=== PATIENT | male | born 1945 | race Caucasian/White ===

== ENCOUNTER 2023-01-19 13:17 | Emergency (ER) | payer MEDICARE, OTHER ==
[~2023-01-19] VITALS: Ht 162.6 cm; Wt 54.4 kg
[~2023-01-19 13:17] MED LIST: ASPI-1420 PO
--- NOTE | 2023-01-19 13:25 | NUR ---
RECEIVED PT TRANSF[facility] S/P GROUND LEVE FALL NO PAIN NO DIFFORMITY C/O HEMATOMAY IN HEAD
--- NOTE | 2023-01-19 13:35 | NUR ---
Luna phipps in [facility] - 01/19/23 at [address]INA SE[address] BY DR. CLEVELAND
--- NOTE | 2023-01-19 13:40 | NUR ---
SEEN BY DR. CLEVELAND
--- NOTE | 2023-01-19 14:10 | NUR ---
TO CT SCAN VIA PABLO
[2023-01-19] MEDS ORDERED: DIVA-78 PO (14:29)
[2023-01-19] MEDS ORDERED: SULF1TAB48 PO (14:29)
[2023-01-19] MEDS ORDERED: CARV3.122 PO (14:29)
[2023-01-19] MEDS ORDERED: MULT-213 PO (14:29)
[2023-01-19] MEDS ORDERED: TAMS-12 PO (14:29)
[2023-01-19] MEDS ORDERED: SACU1TAB7 PO (14:29)
[2023-01-19] MEDS ORDERED: SITA1TAB6 PO (14:29)
[2023-01-19] MEDS ORDERED: DOCU-141 PO (14:29)
[2023-01-19] MEDS ORDERED: ATOR20TA PO (14:29)
[2023-01-19] MEDS ORDERED: QUET100T PO (14:29)
--- NOTE | 2023-01-19 15:41 | NUR ---
SET UP TRANSPORT WITH NADIR FREEMAN 40 MIN.
--- NOTE | 2023-01-19 16:31 | NUR ---
CALLED [facility] SPOKE WITH [facility]
--- NOTE | 2023-01-19 17:00 | NUR ---
Patient discharged to home in stable condition. Written and verbal after care instructions given. Patient verbalizes understanding of instruction.TRANSFER BACK TO [facility]
[2023-01-19 17:09] VITALS: BP 147/96
== END 2023-01-19 17:10 | disposition home or self-care (01) ==
LOC: ER 13:20
DX: S09.90XA Unspecified injury of head, initial encounter (principal); I11.0 Hypertensive heart disease with heart failure; I50.9 Heart failure, unspecified; E11.9 Type 2 diabetes mellitus without complications; F31.9 Bipolar disorder, unspecified; Z79.899 Other long term (current) drug therapy; W06.XXXA Fall from bed, initial encounter; Y93.89 Activity, other specified; Y92.89 Other specified places as the place of occurrence of the external cause; Y99.8 Other external cause status
CPT/HCPCS: 70450-TC

== ENCOUNTER 2023-01-22 10:53 | Inpatient (IN) | payer MEDICARE, OTHER ==
[~2023-01-22] VITALS: Ht 162.6 cm; Wt 61.7 kg
[~2023-01-22 10:53] MED LIST changes: +ATOR20TA PO; +CARV3.122 PO; +DIVA-78 PO; +DOCU-141 PO; +MULT-213 PO; +QUET100T PO; +SACU1TAB7 PO; +SITA1TAB6 PO; +SULF1TAB48 PO; +TAMS-12 PO
[2023-01-22 12:17] LABS: CALCIUM, SERUM 11.9 mg/dL (8.5-10.1); CARBON DIOXIDE 24 mmol/L (21-32); CHLORIDE 105 mmol/L (98-107); CREATININE 1.8 mg/dL (0.6-1.3); GLUCOSE 119 mg/dL (74-106); POTASSIUM 5.2 mmol/L (3.5-5.1); SODIUM SERUM 137 mmol/L (136-145); UREA NITROGEN, BLOOD 32 mg/dL (7-18)
[2023-01-22 12:24] LABS: ALANINE AMINOTRANSFERASE 18 U/L (12-78); ALBUMIN 3.5 g/dL (3.4-5.0); ALKALINE PHOSPHATASE 73 U/L (46-116); ASPARTATE AMINOTRANSFERASE 12 U/L (15-37); BILIRUBIN,DIRECT 0.2 mg/dL (0.0-0.2); BILIRUBIN,TOTAL 0.4 mg/dL (0.2-1.0); TOTAL PROTEIN, SERUM 8.2 g/dL (6.4-8.2)
[2023-01-22 12:57] LABS: BASOPHILS # (AUTO) 0.1 K/uL (0.0-0.2); BASOPHILS % (AUTO) 0.8 % (0.0-2.0); EOSINOPHILS % (AUTO) 0.8 % (0.0-6.0); HEMATOCRIT 42 % (39-51); HEMOGLOBIN 13.8 g/dL (13.5-17.5); LYMPHOCYTES # (AUTO) 2.5 K/uL (0.8-4.8); LYMPHOCYTES % (AUTO) 36.1 % (20.0-44.0); MEAN CORPUSCULAR HGB CONC 33 g/dl (31.0-36.0); MEAN CORPUSCULAR VOLUME 99 fL (80-96); MONOCYTES # (AUTO) 0.6 K/uL (0.1-1.30); MONOCYTES % (AUTO) 8.3 % (2.0-12.0); NEUTROPHILS # (AUTO) 3.7 K/uL (1.8-8.9); PLATELET COUNT (AUTO) 138 K/uL (150-450); RED BLOOD CELL COUNT(AUTO) 4.19 MIL/uL (4.5-6.0); WHITE BLOOD COUNT (AUTO) 6.8 K/uL (4.3-11.0)
[2023-01-22] MEDS ORDERED: IV NS 0.9% 1,000 ML BAG IV ONE (13:00)
[2023-01-22 14:45] LABS: BILIRUBIN,URINE NEGATIVE (NEGATIVE); COLOR,URINE YELLOW (YELLOW); LEUKOCYTE ESTERASE ,URINE NEGATIVE (NEGATIVE); NITRITE, URINE NEGATIVE (NEGATIVE); PROTEIN,URINE NEGATIVE (NEGATIVE); UGLUCOSE NEGATIVE (NEGATIVE); UROBILINOGEN,URINE 0.2 EU/dL (0.2)
[2023-01-22 15:59] LABS: BACTERIA,URINE None seen /HPF (None Seen); SQUAMOUS EPITHELIAL CELL,UR 0-2 /HPF (None Seen); WBC,URINE 0-2 /HPF (0-3)
[2023-01-22] MEDS ORDERED: DEXTROSE 50%-WATER 50 ML DISP.SYRIN IV PRN (16:30)
[2023-01-22] MEDS ORDERED: ACETAMINOPHEN 325 MG TABLET PO PRN (16:30)
[2023-01-22] MEDS ORDERED: ONDANSETRON HCL/PF 4 MG/2 ML VIAL IVP PRN (16:30)
[2023-01-22] MEDS: IV NS 0.9% 1,000 ML IV PRN (16:59)
[2023-01-22] MEDS: BLOOD SUGAR DIAGNOSTIC 1 EACH STRIP IN SCH ×2 (17:25→21:41)
[2023-01-22] MEDS: CARVEDILOL 3.125 MG TABLET PO SCH (17:26)
[2023-01-22] MEDS: DOCUSATE SODIUM 100 MG CAPSULE PO SCH (17:26)
[2023-01-22 18:02] VITALS: BP 134/68
[2023-01-22 20:00] VITALS: BP 131/87
[2023-01-22] MEDS: QUETIAPINE FUMARATE 100 MG TABLET PO SCH (21:41)
[2023-01-22] MEDS: ATORVASTATIN 10 MG TABLET PO SCH (21:42)
[2023-01-22] MEDS: DIVALPROEX SODIUM 500 MG TABLET.DR PO SCH (21:44)
[2023-01-22] MEDS: ENOXAPARIN SODIUM 30 MG/0.3 ML DISP.SYRIN SQ SCH (21:46)
[2023-01-23] MEDS: BLOOD SUGAR DIAGNOSTIC 1 EACH STRIP IN SCH ×4 (06:30→22:02)
[2023-01-23 06:55] LABS: BASOPHILS % (AUTO) 0.6 % (0.0-2.0); EOSINOPHILS % (AUTO) 2.6 % (0.0-6.0); HEMATOCRIT 36 % (39-51); HEMOGLOBIN 11.7 g/dL (13.5-17.5); LYMPHOCYTES # (AUTO) 2.1 K/uL (0.8-4.8); LYMPHOCYTES % (AUTO) 40.9 % (20.0-44.0); MEAN CORPUSCULAR HGB CONC 33 g/dl (31.0-36.0); MEAN CORPUSCULAR VOLUME 100 fL (80-96); MONOCYTES # (AUTO) 0.3 K/uL (0.1-1.30); MONOCYTES % (AUTO) 6.5 % (2.0-12.0); NEUTROPHILS # (AUTO) 2.6 K/uL (1.8-8.9); NEUTROPHILS % (AUTO) 49.4 % (43.0-81.0); PLATELET COUNT (AUTO) 116 K/uL (150-450); RED BLOOD CELL COUNT(AUTO) 3.54 MIL/uL (4.5-6.0); WHITE BLOOD COUNT (AUTO) 5.2 K/uL (4.3-11.0)
[2023-01-23 07:00] LABS: CALCIUM, SERUM 10.4 mg/dL (8.5-10.1); CREATININE 1.2 mg/dL (0.6-1.3); MAGNESIUM 1.5 mg/dL (1.8-2.4); PHOSPHORUS 2.9 mg/dL (2.5-4.9); POTASSIUM 5.3 mmol/L (3.5-5.1)
[2023-01-23] MEDS: IV NS 0.9% 1,000 ML IV PRN (07:27)
[2023-01-23 08:00] VITALS: BP 123/72
[2023-01-23] MEDS: DIVALPROEX SODIUM 500 MG TABLET.DR PO SCH ×2 (09:04→21:35)
[2023-01-23] MEDS: ASPIRIN EC 81 MG TABLET.DR PO SCH (09:04)
[2023-01-23] MEDS: DOCUSATE SODIUM 100 MG CAPSULE PO SCH ×2 (09:05→19:03)
[2023-01-23] MEDS: CARVEDILOL 3.125 MG TABLET PO SCH ×2 (09:05→19:02)
[2023-01-23] MEDS: TAMSULOSIN 0.4 MG CAP.SR.24H PO SCH (09:05)
[2023-01-23] MEDS ORDERED: MAGNESIUM OXIDE 400 MG TABLET PO ONE (10:00)
[2023-01-23] MEDS: MULTIVIT W/MINERALS 1 TAB TABLET PO SCH (12:08)
[2023-01-23 16:00] VITALS: BP 113/75
[2023-01-23 20:44] VITALS: BP 121/73
[2023-01-23] MEDS: QUETIAPINE FUMARATE 100 MG TABLET PO SCH (21:35)
[2023-01-23] MEDS: ATORVASTATIN 10 MG TABLET PO SCH (21:35)
[2023-01-23] MEDS: ENOXAPARIN SODIUM 30 MG/0.3 ML DISP.SYRIN SQ SCH (21:36)
[2023-01-23] MEDS: INSULIN REGULAR, HUMAN 100 UNIT/ML 3 ML VIAL SQ PRN (22:02)
[2023-01-24] MEDS: IV NS 0.9% 1,000 ML IV PRN ×2 (03:13→15:27)
[2023-01-24] MEDS: INSULIN REGULAR, HUMAN 100 UNIT/ML 3 ML VIAL SQ PRN ×4 (06:33→22:59)
[2023-01-24] MEDS: BLOOD SUGAR DIAGNOSTIC 1 EACH STRIP IN SCH ×4 (06:33→21:42)
[2023-01-24 08:38] LABS: CALCIUM, SERUM 10.7 mg/dL (8.5-10.1); CREATININE 1.1 mg/dL (0.6-1.3); POTASSIUM 4.9 mmol/L (3.5-5.1)
[2023-01-24 08:44] LABS: ALBUMIN 2.5 g/dL (3.4-5.0); BILIRUBIN,TOTAL 0.3 mg/dL (0.2-1.0); TOTAL PROTEIN, SERUM 6.2 g/dL (6.4-8.2)
[2023-01-24 09:00] VITALS: BP 141/89
[2023-01-24] MEDS: ASPIRIN EC 81 MG TABLET.DR PO SCH (09:16)
[2023-01-24] MEDS: DOCUSATE SODIUM 100 MG CAPSULE PO SCH ×2 (09:17→17:54)
[2023-01-24] MEDS: MULTIVIT W/MINERALS 1 TAB TABLET PO SCH (09:17)
[2023-01-24] MEDS: TAMSULOSIN 0.4 MG CAP.SR.24H PO SCH (09:17)
[2023-01-24] MEDS: CARVEDILOL 3.125 MG TABLET PO SCH ×2 (09:17→17:54)
[2023-01-24] MEDS: DIVALPROEX SODIUM 500 MG TABLET.DR PO SCH ×2 (09:17→21:06)
[2023-01-24] MEDS ORDERED: MAGNESIUM OXIDE 400 MG TABLET PO ONE (10:00)
[2023-01-24 18:43] VITALS: BP 89/69
[2023-01-24 20:00] VITALS: BP 115/71
[2023-01-24] MEDS: QUETIAPINE FUMARATE 100 MG TABLET PO SCH (21:06)
[2023-01-24] MEDS: ATORVASTATIN 10 MG TABLET PO SCH (21:06)
[2023-01-24] MEDS: ENOXAPARIN SODIUM 30 MG/0.3 ML DISP.SYRIN SQ SCH (21:08)
[2023-01-25] MEDS: IV NS 0.9% 1,000 ML IV PRN (03:37)
[2023-01-25] MEDS: BLOOD SUGAR DIAGNOSTIC 1 EACH STRIP IN SCH ×3 (06:38→17:00)
[2023-01-25] MEDS: ASPIRIN EC 81 MG TABLET.DR PO SCH (08:28)
[2023-01-25] MEDS: CARVEDILOL 3.125 MG TABLET PO SCH (08:29)
[2023-01-25] MEDS: DOCUSATE SODIUM 100 MG CAPSULE PO SCH (08:29)
[2023-01-25] MEDS: TAMSULOSIN 0.4 MG CAP.SR.24H PO SCH (08:29)
[2023-01-25] MEDS: MULTIVIT W/MINERALS 1 TAB TABLET PO SCH (08:29)
[2023-01-25] MEDS: DIVALPROEX SODIUM 500 MG TABLET.DR PO SCH (08:29)
[2023-01-25 08:49] VITALS: BP 118/100
[2023-01-25] MEDS: INSULIN REGULAR, HUMAN 100 UNIT/ML 3 ML VIAL SQ PRN ×2 (12:02→17:00)
[2023-01-25 17:14] VITALS: BP 126/69
== END 2023-01-25 18:10 | DRG 640 ==
LOC: ER 10:55 → MED 15:10
PROVIDERS: ADMIT Nurse Practitioner Acute Care; ATTEND Internal Medicine
DX: R62.7 Adult failure to thrive (principal); N17.0 Acute kidney failure with tubular necrosis; I50.22 Chronic systolic (congestive) heart failure; E87.20 Acidosis, unspecified; F03.93 Unspecified dementia, unspecified severity, with mood disturbance; I11.0 Hypertensive heart disease with heart failure; E11.9 Type 2 diabetes mellitus without complications; F31.9 Bipolar disorder, unspecified; Z79.84 Long term (current) use of oral hypoglycemic drugs; Z79.899 Other long term (current) drug therapy; Z79.82 Long term (current) use of aspirin; E87.5 Hyperkalemia; N40.0 Benign prostatic hyperplasia without lower urinary tract symptoms; S91.302A Unspecified open wound, left foot, initial encounter; S91.301A Unspecified open wound, right foot, initial encounter; X58.XXXA Exposure to other specified factors, initial encounter; Y92.9 Unspecified place or not applicable; E78.5 Hyperlipidemia, unspecified; E88.09 Other disorders of plasma-protein metabolism, not elsewhere classified; Z91.148 Patient's other noncompliance with medication regimen for other reason
CPT/HCPCS: 36415; 71045-TC; 80048-TC; 80053-TC; 80061-TC; 80076-TC; 81001; 82962-TC; 83605-TC; 83735-TC; 84100-TC; 84484-TC; 85025-TC; 85730-TC; 87040-TC; 87081-TC; 87086-TC; A4223; G0378; J1650; J1815; J7030